=== PATIENT | female | born 1950 | race Caucasian/White ===

== ENCOUNTER 2017-12-28 09:13 | Day surgery (SDC) | payer BC, MEDICARE ==
[2017-12-28] MEDS ORDERED: Lactated Ringers 1,000 ML IV SCH (09:30)
[2017-12-28] MEDS ORDERED: Propofol 200 MG/20 ML SDV ONE ×2 (10:40→11:43)
[2017-12-28] MEDS ORDERED: Midazolam 1 MG/ML 2 ML SDV ONE (10:40)
[2017-12-28] MEDS ORDERED: fentaNYL 100 MCG/2 ML SDV ONE (10:40)
--- NOTE | 2017-12-28 14:48 | CR ---
Single contrast barium enema Barium was administered retrograde into the colon via gravity. The colon demonstrates normal distensi bility. There is no evidence for stricture. There are no diverticula seen. There are no polyps. There is reflux into a normal-appearing terminal ileum. Impression: 1. Negative exam.
--- NOTE | 2017-12-29 08:01 | OR ---
DATE OF PROCEDURE: 12/28/2017 PREOPERATIVE DIAGNOSIS: Colon cancer screening. POSTOPERATIVE DIAGNOSIS: Unremarkable incomplete colonoscopy to the right colon. PROCEDURE: Colonoscopy to the right colon. ANESTHESIA: IV anesthesia with monitored anesthesia care. INDICATION: This 67-year-old white female is referred for a colonoscopy for colon cancer screening. Her last colonoscopic exam she says was done 10 years ago. I counseled her for the procedure, including risks and alternatives, and she gave her informed consent to proceed. DESCRIPTION OF PROCEDURE: The patient was placed in the left lateral decubitus position. IV anesthesia was administered by the Anesthesia Service. Time-out was held. A rectal exam was performed, which was unremarkable. The flexible video Olympus colonoscope was introduced through her anus, up her rectum, and out her colon. We could only get as far as the right colon. We could not get down into the cecum. We could not visualize the cecum. We attempted to go higher by applying abdominal compression with advancement and with the patient in both the left lateral and supine positions. Despite multiple attempts, we were unable to go any higher. The scope was then slowly withdrawn, examining the mucosa throughout. No mucosal abnormalities were noted. The scope was retroflexed in the rectum with the distal rectum appearing unremarkable. The scope was straightened and removed. She tolerated the procedure well. I will order a barium enema. Rober Red MD /[id number]
== END 2017-12-28 15:10 | disposition home or self-care (01) ==
LOC: JP.SDS 09:13
PROVIDERS: ATTEND Surgery
DX: Z12.11 Encounter for screening for malignant neoplasm of colon (principal); E78.5 Hyperlipidemia, unspecified
CPT/HCPCS: 45330; 74270; J2250; J2704; J3010; J7120